=== PATIENT | male | born 2000 | race Caucasian/White ===

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

== ENCOUNTER 2022-10-13 07:15 | Emergency (ER) | payer OTHER ==
[2022-10-13 07:25] VITALS: BP 140/89; PULSE 102; RESP 16; TEMP 97.9; BMI 25.4
[2022-10-13] MEDS ORDERED: IBUPROFEN 400 MG TABLET (FP) PO ONE ×2 (07:27→07:34)
== END 2022-10-13 08:19 | disposition home or self-care (01) ==
LOC: FER 07:15
DX: S43.101A Unspecified dislocation of right acromioclavicular joint, initial encounter (principal); M25.511 Pain in right shoulder; W20.8XXA Other cause of strike by thrown, projected or falling object, initial encounter; Y93.I9 Activity, other involving external motion; Y92.009 Unspecified place in unspecified non-institutional (private) residence as the place of occurrence of the external cause
CPT/HCPCS: 73030-TC-RT-FY; 99283-25